=== PATIENT | male | born 1985 | race Caucasian/White ===

== ENCOUNTER 2019-12-05 11:46 | Emergency (ER) | payer MEDICAID ==
[~2019-12-05] VITALS: Ht 182.9 cm; Wt 86.0 kg
[2019-12-05 11:50] VITALS: BP 134/88
[2019-12-05 12:41] LABS: CLARITY,URINE CLEAR (Clear); COLOR,URINE YELLOW (Yellow); GLUCOSE, URINE NEGATIVE (Neg); KETONES,URINE NEGATIVE (Neg); LEUKOCYTE ESTERASE ,URINE NEGATIVE (Neg); NITRITES, URINE NEGATIVE (Neg); OCCULT BLOOD,URINE NEGATIVE (Neg); PROTEIN,URINE NEGATIVE (Neg); UROBILINOGEN,URINE 0.2 E.U/dL (0.2-1.0)
[2019-12-05 12:42] LABS: UA COLLECTION TYPE VOIDED
[2019-12-05] MEDS ORDERED: METH-360 PO (14:39)
[2019-12-05] MEDS ORDERED: NAPR-56 PO (14:39)
[2019-12-05] MEDS ORDERED: orphenadrine citrate 60mg/2ml inj. IM ONE (14:40)
[2019-12-05] MEDS ORDERED: ketorolac tromethamine 15mg/ml inj. IM ONE (14:40)
== END 2019-12-05 15:00 | disposition home or self-care (01) ==
LOC: ER 11:46
DX: S39.012A Strain of muscle, fascia and tendon of lower back, initial encounter (principal); Z79.899 Other long term (current) drug therapy; X58.XXXA Exposure to other specified factors, initial encounter; Y93.89 Activity, other specified; Y92.89 Other specified places as the place of occurrence of the external cause; Y99.8 Other external cause status
CPT/HCPCS: 81003; 96372; 99284; J1885; J2360

== ENCOUNTER 2019-12-26 15:21 | Emergency (ER) | payer MEDICAID ==
[~2019-12-26] VITALS: Ht 198.1 cm; Wt 89.0 kg
[~2019-12-26 15:21] MED LIST: METH-360 PO; NAPR-56 PO
[2019-12-26 15:26] VITALS: BP 162/108
[2019-12-26] MEDS ORDERED: HYDR-3686 PO (15:55)
[2019-12-26] MEDS ORDERED: ONDA4TAB6 PO (15:55)
== END 2019-12-26 15:59 | disposition home or self-care (01) ==
LOC: ER 15:22
DX: F10.10 Alcohol abuse, uncomplicated (principal); R07.89 Other chest pain; R11.0 Nausea; Z79.899 Other long term (current) drug therapy; Y90.9 Presence of alcohol in blood, level not specified
CPT/HCPCS: 99283